=== PATIENT | male | born 1985 | race Caucasian/White ===

== ENCOUNTER 2018-04-09 08:51 | Emergency (ER) | payer OTHER ==
--- NOTE | 2018-04-09 09:22 | ED ---
Throat Pain/Nasal Congestion - HPI Summary HPI Summary: This patient is a 33 year old presenting to [facility] with a chief complaint of a getting hit by a bungie cord in the [right] eye since 08:30 today. Per triage , Pt has a hyphema in the Right eye the lid is bruised. The patient rates the pain 4/10 in severity. Patient reports difficulty seeing. He does not have a PMHx of a bleeding disorder and is not on any medications. Patient does not wear contacts. - History of Current Complaint Chief Complaint: EDEyeProblem Time Seen by Provider: 04/09/18 09:15 Hx Obtained From: Patient Onset/Duration: Sudden Onset, Lasting Hours - Since 08:30 this morning, Still Present - Allergies/Home Medications Allergies/Adverse Reactions: Allergies Allergy/AdvReac Type Severity Reaction Status Date / Time Sulfa (Sulfonamide Allergy Rash Verified 04/09/18 09:11 Antibiotics) Home Medications: Home Medications NK [No Home Medications Reported] 04/09/18 [History Confirmed 04/09/18] PMH/Surg Hx/FS Hx/Imm Hx Endocrine/Hematology History: Denies: Hx Diabetes Cardiovascular History: Denies: Hx Coronary Artery Disease Infectious Disease History: No Infectious Disease History: Denies: Traveled Outside the [place] in Last 30 Days - Family History Known Family History: Positive: Diabetes, Other - Bone cancer - Social History Occupation: Employed Full-time Lives: With Family Alcohol Use: Occasionally Substance Use Type: Reports: None Smoking Status (MU): Former Smoker Review of Systems Negative: Fever Positive: Blurred Vision, Other - Right eye pain All Other Systems Reviewed And Are Negative: Yes Physical Exam - Summary Physical Exam Summary: GENERAL: Patient is a well-developed and nourished M who is lying comfortable in the stretcher. Patient is not in any acute respiratory distress. HEAD AND FACE: Normocephalic EYES: 50% hyphema of right eye. Pupils nonreactive of right eye. Surrounding periarterial ecchymosis of right eye EARS: Hearing grossly intact. MOUTH: Oropharynx within normal limits. NECK: Supple, trachea is midline, no adenopathy, no JVD, no carotid bruit. CHEST: Symmetric, no tenderness at palpation LUNGS: Clear to auscultation bilaterally. No wheezing or crackles. CVS: Regular rate and rhythm, S1 and S2 present, no murmurs or gallops appreciated. ABDOMEN: Soft, non-tender. Bowel sounds are normal. No abdominal abnormal pulsations. EXTREMITIES: Full ROM in all major joints, no edema, no cyanosis or clubbing. NEURO: Alert and oriented x 3. No acute neurological deficits. Speech is normal and follows commands. SKIN: Dry and warm Triage Information Reviewed: Yes Vital Signs On Initial Exam: Initial Vitals Temp Pulse Resp BP Pulse Ox 98.3 F 85 18 144/78 98 04/09/18 09:07 04/09/18 09:07 04/09/18 09:07 04/09/18 09:07 04/09/18 09:07 Vital Signs Reviewed: Yes Diagnostics - Vital Signs Vital Signs Temp Pulse Resp BP Pulse Ox 04/09/18 09:07 98.3 F 85 18 144/78 98 - Laboratory Lab Statement: Any lab studies that have been ordered have been reviewed, and results considered in the medical decision making process. EENT Course/Dx - Course Assessment/Plan: This patient is a 33 year old presenting to [facility] with a chief complaint of a getting hit by a bungie cord in the [right] eye since 08: 30 today. I spoke to Dr. Escamilla upon the patient's arrival who recommended that the patient be referred to his office immediately. Patient was given Tylenol. The patient will be discharged with instructions to follow up immediately with Dr. Escamilla, opthamology. I discussed results with patient and he agrees with this plan. He is hemodynamically stable upon discharge. Strict return precautions given and he will otherwise follow up with his/her PCP. - Diagnoses Provider Diagnoses: Hyphema of right eye - Provider Notifications Discussed Care Of Patient With: Yandel Escamilla - Ophthamologist Time Discussed With Above Provider: 09:35 Instructed by Provider To: Send To Office Now Discharge - Sign-Out/Discharge Documenting (check all that apply): Patient Departure - Discharge Plan Condition: Stable Disposition: HOME Patient Education Materials: Hyphema (ED) Referrals: Jaciel BHAKTA,Tushar Saldana [Primary Care Provider] - 3 Days Yandel Escamilla MD [Medical Doctor] - As Soon As Possible (Follow up [facility] Esc[facility] as [facility] Additional Instructions: RETURN TO THE EMERGENCY DEPARTMENT FOR CHANGING OR WORSENING SYMPTOMS. - Attestation Statements Document Initiated by Scribe: Yes Documenting Scribe: Rip Schmidt Provider For Whom Scribe is Documenting (Include Credential): Jessenia George MD Scribe Attestation: Rip Fitzpatrick, scribed for Jessenia George MD on 04/09/18 at 1113.
[2018-04-09] MEDS ORDERED: Acetaminophen TAB* 325 MG PO ONE (09:33)
[2018-04-09 09:41] VITALS: BP 133/82
== END 2018-04-09 09:39 | disposition home or self-care (01) ==
LOC: ED 08:51
DX: H21.01 Hyphema, right eye (principal); H53.8 Other visual disturbances; Z87.891 Personal history of nicotine dependence
CPT/HCPCS: 99282; A9270-GY

== ENCOUNTER 2018-04-19 12:00 | Day surgery (SDC) | payer OTHER ==
[~2018-04-19 12:00] MED LIST: mitoMYcin PWD* 0.2 MG in Sterile Water for Inj* 1 ML OPHTHALMIC SCH
[2018-04-19] MEDS ORDERED: Proparacaine 0.5% OPHTH.SOL* 15 ML BTL ONE (12:40)
[2018-04-19] MEDS ORDERED: Lidocaine 2% PF* 10 ML AMP ONE ×2 (13:17→13:21)
[2018-04-19] MEDS ORDERED: Sodium Bicarbonate 8.4% SYR* 10 ML SYRINGE ONE ×2 (13:17→13:19)
[2018-04-19] MEDS ORDERED: Hyaluronidase OVINE* 200 UNIT/ML ML SUBCUT ONE (13:18)
[2018-04-19] MEDS ORDERED: Triamcinolone Acetonide* 40 MG/ML 1 ML VIAL ONE (13:21)
[2018-04-19] MEDS ORDERED: BSS OPTH.SOL* BTL ONE (13:21)
[2018-04-19] MEDS ORDERED: Atropine 1% OPHTH.SOL* 2 ML BOT - 2 ML ONE (13:21)
[2018-04-19] MEDS ORDERED: Acetylcholine 1:100 OPTH* OPHTH.SOLN ONE (13:21)
[2018-04-19] MEDS ORDERED: Lidocaine 2% EPI 1:200000 MPF*10-20 ML VIAL ONE (13:22)
[2018-04-19] MEDS ORDERED: Povidone Iodine 5% OPTH* 30 ML BTL ONE (13:22)
[2018-04-19] MEDS ORDERED: Neomycin/Polymy/Dex OPTH.SUSP* MAXITROL 0.1% 5 ML ONE (13:22)
[2018-04-19] MEDS ORDERED: Midazolam* 1 MG/ML 2 ML VIAL (2 MG) ONE (13:30)
[2018-04-19] MEDS ORDERED: fentaNYL* 50 MCG/ML 2 ML VIAL (100 MCG VIAL) ONE (13:30)
[2018-04-19] MEDS ORDERED: Propofol* 10 MG/ML 20 ML BTL IV PUSH ONE (14:03)
[2018-04-19] MEDS ORDERED: Naloxone* 0.4 MG/ML 1 ML VIAL IV PRN (14:14)
[2018-04-19] MEDS ORDERED: Acetaminophen TAB* 325 MG ONE (15:33)
[2018-04-19 15:43] VITALS: BP 134/89
--- NOTE | 2018-04-20 07:46 | OP ---
DATE OF OPERATION: 04/19/18 - [facility] DATE OF : 85 SURGEON: Tomas Morillo M.D. ANESTHESIA: Local with MAC. 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 OPERATIVE PROCEDURE: Ahmed valve, right. COMPLICATIONS: None. DESCRIPTION OF PROCEDURE: The patient was given retrobulbar anesthesia in the operating room, 50:50 mixture of 0.75 Marcaine with 2% lidocaine with epinephrine, 4 cc injected into the muscle cone without difficulty. The eye was prepped and draped in the usual sterile fashion. Lid speculum was placed. The eye inspected. There was an iridodialysis from 7 o'clock to 11 o'clock with a small amount of hyphema in the anterior chamber. A 6-0 silk traction suture was placed through the superior limbus and the eye rotated inferiorly. A fornix-based conjunctival peritomy was performed with Angelina scissors from the 10 o'clock to 12 o'clock position. The Ahmed valve FP7 was primed with balanced salt solution and then placed 10 mm posterior to the limbus. Sub-tenon 's and sutured directly to the sclera using two 10-0 Prolene sutures through the footplates. Paracentesis was made at the 9 o'clock position with 75 blade. Anterior chamber was entered using a 27-gauge needle at the 10:30 position. DisCoVisc placed into the anterior chamber. Tube trimmed and placed into the anterior chamber in good position and sutured down to the sclera with two 10-0 Prolenes. This was covered with donor sclera and that was sutured with four 10- 0 nylon sutures and the conjunctiva was closed using a running locking 10-0 nylon at the limbus and then Vicryl on the edges. Traction suture removed. Sub -Tenon's Kenalog 40 mg/mL, 1 mL was given sub-Tenon's inferotemporally, topical atropine and Maxitrol given. The eye was patched. [id number]/[facility] #: [id number] [facility]
== END 2018-04-19 15:56 | disposition home or self-care (01) ==
LOC: OREAST 12:00
PROVIDERS: ATTEND Specialist
DX: H40.31 Glaucoma secondary to eye trauma, right eye (principal)
CPT/HCPCS: A9270-GY; C1783; J2001; J2250; J2704; J3010; J3301; J3471; J9280